=== PATIENT | female | born 1950 | race Caucasian/White ===

== ENCOUNTER → 2016-07-24 | Outpatient (CLI) | payer OTHER ==
--- NOTE | 2016-07-24 14:37 | XR ---
EXAMINATION TYPE: XR cervical spine limited DATE OF EXAM: 07/24/2016 12:58 PM COMPARISON: NONE HISTORY: 66-year-old female with neck pain TECHNIQUE: 3 views FINDINGS: No predental space widening or prevertebral soft tissue swelling. There is normal alignment of the ce rvical spine. Mild facet arthropathy mid to lower cervical spine. Odontoid view appears normal. Disc interspaces are relatively maintained. IMPRESSION: Mild facet arthropathy mid to lower cervical spine. Preserved alignment without acute osseous abnorma lity seen.
== END ==
LOC: RADXRMAIN 12:36
PROVIDERS: ATTEND Family Medicine
DX: M46.82 Other specified inflammatory spondylopathies, cervical region (principal)
CPT/HCPCS: 72040

== ENCOUNTER → 2016-09-10 | Outpatient (CLI) | payer OTHER ==
--- NOTE | 2016-09-10 15:31 | XR ---
EXAMINATION TYPE: XR thoracic spine 2V DATE OF EXAM: 09/10/2016 CLINICAL HISTORY: Thoracic spine pain per order. TECHNIQUE: Frontal, lateral, and swimmer's view of thoracic spine are obtained. COMPARISON: None. FINDINGS: Thoracic spine show slight scoliotic curvature without evidence of acute fracture or disloc ation. Vertebral body heights and disc space heights are preserved. Mild to moderate multilevel ante rior and lateral spurring is seen. Surgical clips epigastric region are noted. Additional cholecystec rossy clips are present. Visualized ribs are unremarkable. IMPRESSION: Mild to moderate multilevel spurring.
== END | disposition home or self-care (01) ==
LOC: RADXRMAIN 14:59
PROVIDERS: ATTEND Family Medicine
DX: M46.04 Spinal enthesopathy, thoracic region (principal); M54.6 Pain in thoracic spine
CPT/HCPCS: 72070

== ENCOUNTER → 2017-07-13 | Outpatient (CLI) | payer OTHER ==
--- NOTE | 2017-07-13 11:17 | MM ---
Reason for exam: additional evaluation requested from prior study. Last mammogram was performed 1 year and 5 months ago. History: Patient is postmenopausal, has history of breast cancer at age 56, and had previous chest radiation therapy at age 55. Family history of breast cancer in maternal grandmother and breast cancer in maternal aunt at age 60. Benign US left guided VAD of the left breast, July 04, 2010. Malignant excisional biopsy of the left breast, November 15, 2006. Excisional biopsy of the left breast, October 29, 2006. Malignant left mammotome panel of the left breast, October 18, 2006. Radiation therapy, 2006. Taking antineoplastic for 3 years beginning at age 56. Physical Findings: Nurse Summary: 1 x 1cm nodule in the left breast at scar/12 o'clock (nurse ts). MG 3D Diag Mammo W/Cad DG Bilateral CC and MLO view(s) were taken. XCCL view(s) were taken of the left breast. Prior study comparison: February 13, 2016, bilateral MG 3d diag mammo w/cad DG. February 11, 2015, bilateral MG 3d diag mammo w/cad DG. The breast tissue is heterogeneously dense. This may lower the sensitivity of mammography. There is a stable right upper outer quadrant posterior depth mass back to 2014. Left post therapy change. These results were verbally communicated with the patient and result sheet given to the patient on 07/13/17. ASSESSMENT: Benign, BI-RAD 2 RECOMMENDATION: Routine screening mammogram of both breasts in 1 year.
== END | disposition home or self-care (01) ==
LOC: RADMAMWWP 09:54
PROVIDERS: ATTEND Internal Medicine Hematology & Oncology
DX: Z08 Encounter for follow-up examination after completed treatment for malignant neoplasm (principal); Z85.3 Personal history of malignant neoplasm of breast
CPT/HCPCS: 77062; 77066

== ENCOUNTER → 2017-07-21 | Outpatient (CLI) | payer OTHER ==
--- NOTE | 2017-07-21 11:45 | CT ---
CT CHEST FOR PULMONARY EMBOLISM. EXAMINATION TYPE: CT angio chest DATE OF EXAM: 07/21/2017 INDICATION: Shortness of breath CT DLP: 598 mGycm, Automated exposure control for dose reduction was used. CONTRAST: Patient injected with 100 mL of Isovue 370. COMPARISON: 11/06/2010 TECHNIQUE: CT of the chest is performed on a spiral scan at 2 mm thick sections. Study is performed with intravenous contrast timed for evaluation for pulmonary embolism. This will limit additional po rtions of the evaluation. 3-D MIP images reconstructed by the technologist are reviewed on the compu ter in the coronal and sagittal planes. FINDINGS: No persistent filling defects are evident to suggest an acute pulmonary embolism. No mediastinal or hilar adenopathy enlarged by CT criteria is evident. No suspicious small lymph nod es are evident. The ascending aorta diameter at the level of the main pulmonary artery is 3.9 cm. Th e main pulmonary artery diameter at the bifurcation is 3.2 cm. Lung windows are clear. Limited CT section through the upper abdomen are unremarkable. Surgical clips left breast cancer. IMPRESSIONS: 1. No acute pulmonary embolism.
== END | disposition home or self-care (01) ==
LOC: RADCTMAIN 07-20 15:50
PROVIDERS: ATTEND Internal Medicine Hematology & Oncology
DX: C50.912 Malignant neoplasm of unspecified site of left female breast (principal); R06.02 Shortness of breath
CPT/HCPCS: 82565; 84520; 71275; 36415; Q9967

== ENCOUNTER → 2017-12-23 | Outpatient (CLI) | payer OTHER ==
--- NOTE | 2017-12-24 08:34 | USB ---
Reason for exam: clinical finding. History: Patient is postmenopausal, has history of breast cancer at age 56, and had previous chest radiation therapy at age 55. Family history of breast cancer in maternal grandmother and breast cancer in maternal aunt at age 60. Benign US left guided VAD of the left breast, July 04, 2010. Malignant excisional biopsy of the left breast, November 15, 2006. Excisional biopsy of the left breast, October 29, 2006. Malignant left mammotome panel of the left breast, October 18, 2006. Radiation therapy, 2006. Taking antineoplastic for 3 years beginning at age 56. Physical Findings: Nurse Summary: left breast hard, non-movable, 0.5 x 0.5cm palpable at lumpectomy site (nurse ts). US Breast LT Left complete breast ultrasound includes all four quadrants, the retroareolar region and axilla. Finding demonstrates a shadowing scar with lobular borders at 12 o'clock and a 0.9 x 1.2 x 0.3cm oval, elongated, hypoechoic lesion at the lateral chest. These results were verbally communicated with the patient and result sheet given to the patient on 12/23/17. ASSESSMENT: Probably benign, BI-RAD 3 RECOMMENDATION: Ultrasound of the left breast in 6 months. Manage patient on a clinical basis.
== END | disposition home or self-care (01) ==
LOC: RADUSWWP 15:26
PROVIDERS: ATTEND Internal Medicine Hematology & Oncology
DX: N63.20 Unspecified lump in the left breast, unspecified quadrant (principal); Z85.3 Personal history of malignant neoplasm of breast

== ENCOUNTER → 2018-08-29 | Outpatient (CLI) | payer OTHER ==
--- NOTE | 2018-08-29 14:59 | MM ---
Reason for exam: additional evaluation requested from prior study. Last mammogram was performed 1 year and 2 months ago. History: Patient is postmenopausal, has history of breast cancer at age 56, and had previous chest radiation therapy at age 55. Family history of breast cancer in maternal grandmother and breast cancer in maternal aunt at age 60. Benign US left guided VAD of the left breast, July 04, 2010. Malignant excisional biopsy of the left breast, November 15, 2006. Excisional biopsy of the left breast, October 29, 2006. Malignant left mammotome panel of the left breast, October 18, 2006. Radiation therapy, 2006. Taking antineoplastic for 3 years beginning at age 56. Physical Findings: Nurse did not find any significant physical abnormalities on exam. MG 3D Diag Mammo W/Cad DG Bilateral CC and MLO view(s) were taken. Prior study comparison: July 13, 2017, bilateral MG 3d diag mammo w/cad DG. February 13, 2016, bilateral MG 3d diag mammo w/cad DG. The breast tissue is heterogeneously dense. This may lower the sensitivity of mammography. There are benign appearing stable 3 masses. No suspicious abnormality. Post therapy change on the left. These results were verbally communicated with the patient and result sheet given to the patient on 08/29/18. ASSESSMENT: Benign, BI-RAD 2 RECOMMENDATION: Follow-up diagnostic mammogram of both breasts in 1 year.
== END | disposition home or self-care (01) ==
LOC: RADMAMWWP 13:31
PROVIDERS: ATTEND Internal Medicine Hematology & Oncology
DX: Z85.3 Personal history of malignant neoplasm of breast (principal)
CPT/HCPCS: 77062; 77066

== ENCOUNTER → 2018-12-26 | Outpatient (CLI) | payer OTHER ==
--- NOTE | 2018-12-26 10:24 | BD ---
EXAMINATION TYPE: Axial Bone Density DATE OF EXAM: 12/26/2018 COMPARISON: NONE CLINICAL HISTORY: Postmenopausal female Height: 5 FT 3 1/2 IN Weight: 252 FRAX RISK QUESTIONS: History of Fracture in Adulthood: YES RISK FACTORS HISTORY OF: Surgery to Spine/Hip(right/left)/Wrist (right/left): RT WRIST When: UNSURE Active: NO Postmenopausal woman: PART HYST AGE 32-31 Lost more than 2 inches in height since high school: YES MEDICATIONS: Additional Medications: ACID REFLUX MEDS, LOSARTIN , POTASSIUM, CELEBREX, ROSACIA MEDS, Additional History: EXAM MEASUREMENTS: Bone mineral densitometry was performed using the [employer] System. Bone mineral density as measured about the Lumbar spine is: ----- L1-L4(G/cm2): 1.113 T Score Values are as follows: ----- L2: -1.1 ----- L3: -0.6 ----- L4: 0.0 ----- L1-L4: -0.6 Bone mineral density has: INCREASED 13.6 % since study of: 2010 Bone mineral density about the R hip (g/cm2): 1.113 Bone mineral density about the L hip (g/cm2): 1.045 T Score values are as follows: -----R Neck: 0.5 -----L Neck: 0.1 -----R Total: 1.5 -----L Total: 1.3 Bone mineral density has: INCREASED 3.3 % since study of: 2010 IMPRESSION: Normal (Values between +1 and -1 indicate normal bone mass). Consider repeating this study in 5 year s or sooner if there is some new clinical indication. NOTE: T-SCORE=SD OF THE YOUNG ADULT MEAN.
== END ==
LOC: RADBDWWP 09:17
PROVIDERS: ATTEND Family Medicine
DX: Z13.820 Encounter for screening for osteoporosis (principal); Z78.0 Asymptomatic menopausal state
CPT/HCPCS: 77080

== ENCOUNTER → 2019-01-31 | Outpatient (CLI) | payer OTHER ==
--- NOTE | 2019-01-31 15:20 | XR ---
EXAMINATION TYPE: XR thoracic spine complete DATE OF EXAM: 01/31/2019 CLINICAL HISTORY: Chronic pain. TECHNIQUE: Frontal, lateral, and swimmer's view of thoracic spine are obtained. COMPARISON: CTA chest July 21, 2017. FINDINGS: Thoracic spine show exaggerated thoracic kyphosis without evidence of acute fracture or dis location. Vertebral body heights remain preserved. [id number] multilevel disc space narrowing and moderate multilevel anterior and lateral spurring is redemonstrated. Visualized ribs are unremark able. Cholecystectomy clips are again seen. IMPRESSION: As above.
--- NOTE | 2019-01-31 15:21 | XR ---
EXAMINATION TYPE: XR scapula bilateral DATE OF EXAM: 01/31/2019 COMPARISON: CTA chest July 21, 2017 HISTORY: Chronic bilateral scapula pain. TECHNIQUE: 2 views bilateral scapula. FINDINGS: No acute displaced scapular fracture identified bilaterally. No suspicious lytic or destruc tive bony lesion seen. Fairly moderate to severe bilateral glenohumeral joint narrowing with right gr eater than left humeral head spurring is incidentally noted. IMPRESSION: As above.
== END | disposition home or self-care (01) ==
LOC: RADXRMAIN 14:47
PROVIDERS: ATTEND Family Medicine
DX: M89.8X1 Other specified disorders of bone, shoulder (principal); M99.72 Connective tissue and disc stenosis of intervertebral foramina of thoracic region; M54.6 Pain in thoracic spine
CPT/HCPCS: 72072

== ENCOUNTER → 2019-12-26 | Outpatient (CLI) | payer OTHER ==
[2019-12-26 22:58] LABS: Thyroid Peroxidase Antibodies 54.3 U/mL (0.0-60.0)
== END | disposition home or self-care (01) ==
LOC: LABWHC1 13:23
PROVIDERS: ATTEND Family Medicine
DX: E01.0 Iodine-deficiency related diffuse (endemic) goiter (principal)
CPT/HCPCS: 36415; 86376; 86800

== ENCOUNTER → 2020-01-01 | Outpatient (CLI) | payer OTHER ==
--- NOTE | 2020-01-01 15:29 | US ---
EXAMINATION TYPE: US thyroid st tissue head/neck DATE OF EXAM: 01/01/2020 COMPARISON: NONE CLINICAL HISTORY: E01.0 thyromegaly. thyromegaly GLAND SIZE: Right Lobe: 4.2 x 1.5 x 1.8 cm Overall Parenchyma: homogenous Left Lobe: 3.9 x 1.2 x 1.5 cm Overall Parenchyma: homogeneous Isthmus Thickness: 0.3 cm NODULES RIGHT: # of nodules measured on right: 0 LEFT: # of nodules measured on left: 1 1. 0.8 X 0.4 x 0.6 cm cystic nodule at the upper pole with well-defined margins; . This nodule is wider than tall and shows no intranodular vascularity. Prior size: no prior ISTHMUS: # of nodules measured in the isthmus: 0 Bilateral neck scanned, no evidence of lymphadenopathy. Slightly heterogeneous normal-sized thyroid without worrisome greater than 1 cm nodules. Technologist alvarez 8 mm cystic nodule left thyroid lobe. Smaller nodules measuring under 5 mm are scattered bilat erally on images saved. IMPRESSION: As above. No concerning greater than 1 cm nodules.
== END | disposition home or self-care (01) ==
LOC: RADUSWWP 14:47
PROVIDERS: ATTEND Family Medicine
DX: E04.2 Nontoxic multinodular goiter (principal)
CPT/HCPCS: 76536

== ENCOUNTER → 2020-02-01 | Outpatient (CLI) | payer OTHER ==
--- NOTE | 2020-02-01 14:05 | MM ---
Reason for exam: follow-up at short interval from prior study. Last mammogram was performed 4 months ago. History: Patient is postmenopausal, has history of breast cancer at age 56, had previous chest radiation therapy at age 55, and has history of other cancer at age 30. Family history of breast cancer in maternal grandmother and breast cancer in maternal aunt at age 60. Benign US left guided VAD of the left breast, July 04, 2010. Malignant excisional biopsy of the left breast, November 15, 2006. Excisional biopsy of the left breast, October 29, 2006. Malignant left mammotome panel of the left breast, October 18, 2006. Radiation therapy, 2006. Took antineoplastic for 5 years beginning at age 56. Physical Findings: Nurse did not find any significant physical abnormalities on exam. MG 3D Diag Mammo W/Cad RT CC and MLO view(s) were taken of the right breast. Prior study comparison: September 22, 2019, bilateral MG 3d diag mammo w/cad DG. August 29, 2018, bilateral MG 3d diag mammo w/cad DG. The breast tissue is heterogeneously dense. This may lower the sensitivity of mammography. There is chronic nodularity in the left breast. 1cm circumscribed mass 12 o'clock right breast middle depth versus 9mm 4 months ago. This can be reassessed by ultrasound. These results were verbally communicated with the patient and result sheet given to the patient on 02/01/20. ASSESSMENT: Incomplete: need additional imaging evaluation, BI-RAD 0 RECOMMENDATION: Ultrasound of the right breast. (12 o'clock)
--- NOTE | 2020-02-01 14:07 | USB ---
Reason for exam: additional evaluation requested from abnormal screening. History: Patient is postmenopausal, has history of breast cancer at age 56, had previous chest radiation therapy at age 55, and has history of other cancer at age 30. Family history of breast cancer in maternal grandmother and breast cancer in maternal aunt at age 60. Benign US left guided VAD of the left breast, July 04, 2010. Malignant excisional biopsy of the left breast, November 15, 2006. Excisional biopsy of the left breast, October 29, 2006. Malignant left mammotome panel of the left breast, October 18, 2006. Radiation therapy, 2006. Took antineoplastic for 5 years beginning at age 56. US Breast Limited RT Technologist: Viki Cramer Right limited breast ultrasound including focal area of concern, retroareolar and axilla demonstrates a 0.8 x 0.9 x 0.5cm cystic lesion at 12 o'clock versus 9 x 9 x 6mm previously, two thin septations. Unchanged from priors. The nodularity on mammogram can be reassessed at the patient's annual exam. Scanned 12-3 o'clock. These results were verbally communicated with the patient and result sheet given to the patient on 02/01/20. ASSESSMENT: Probably benign, BI-RAD 3 RECOMMENDATION: Follow-up diagnostic mammogram of both breasts in 8 months. Back on schedule for August 2020.
== END | disposition home or self-care (01) ==
LOC: RADMAMWWP 10:58
PROVIDERS: ATTEND Internal Medicine Hematology & Oncology
DX: R92.8 Other abnormal and inconclusive findings on diagnostic imaging of breast (principal); Z85.3 Personal history of malignant neoplasm of breast
CPT/HCPCS: 77061; 77065

== ENCOUNTER → 2020-10-03 | Outpatient (CLI) | payer MEDICARE ==
--- NOTE | 2020-10-08 13:29 | MM ---
Reason for exam: additional evaluation requested from prior study. Last mammogram was performed 8 months ago. History: Patient is postmenopausal, has history of breast cancer at age 56, had previous chest radiation therapy at age 55, and has history of other cancer at age 30. Family history of breast cancer in maternal grandmother and breast cancer in maternal aunt at age 60. Benign US left guided VAD of the left breast, July 04, 2010. Malignant excisional biopsy of the left breast, November 15, 2006. Excisional biopsy of the left breast, October 29, 2006. Malignant left mammotome panel of the left breast, October 18, 2006. Radiation therapy, 2006. Took antineoplastic for 5 years beginning at age 56. Physical Findings: Nurse did not find any significant physical abnormalities on exam. MG 3D Diag Mammo W/Cad DG Bilateral CC and MLO view(s) were taken. Prior study comparison: February 01, 2020, right breast MG 3d diag mammo w/cad RT. September 22, 2019, bilateral MG 3d diag mammo w/cad DG. August 29, 2018, bilateral MG 3d diag mammo w/cad DG. July 13, 2017, bilateral MG 3d diag mammo w/cad DG. The breast tissue is heterogeneously dense. This may lower the sensitivity of mammography. Finding #1: There is stable and decreased in size architectural distortion in the left breast consistent with known post tram changes. Finding #2: There are typically benign round, regional calcifications in both breasts. There is a chronic nodularity in the right breast. There is no new discrete abnormality. These results were verbally communicated with the patient and result sheet given to the patient on 10/03/20. ASSESSMENT: Benign, BI-RAD 2 RECOMMENDATION: Follow-up diagnostic mammogram of both breasts in 1 year.
== END | disposition home or self-care (01) ==
LOC: RADMAMWWP 13:38
PROVIDERS: ATTEND Internal Medicine Hematology & Oncology
DX: R92.2 Inconclusive mammogram (principal); Z78.0 Asymptomatic menopausal state; Z85.3 Personal history of malignant neoplasm of breast; Z80.3 Family history of malignant neoplasm of breast
CPT/HCPCS: 77066; G0279; 77062

== ENCOUNTER → 2021-10-06 | Outpatient (CLI) | payer MEDICARE ==
--- NOTE | 2021-10-06 11:28 | MM ---
Reason for Exam: Follow-up at short interval from prior study. Last screening mammogram was performed 12 month(s) ago. Patient History: Menarche at age 13. First Full-Term at age 18. Hysterectomy at age 40. Postmenopausal. Breast cancer, left, age 56. Other cancer, age 30. Previous chest radiation therapy at age 55. 11/15/2006, Malignant Excisional Biopsy on the left side. 10/29/2006, Excisional Biopsy on the Left side. 07/04/2010, Benign Core Biopsy on the left side. 10/18/2006, Malignant Core Biopsy on the left side. 2006, Radiation Therapy. Maternal grandmother had breast cancer, age 80. Maternal aunt had breast cancer, age 60. Tissue Density: The breast tissue is heterogeneously dense. This may lower the sensitivity of mammography. Findings: Analyzed By CAD. Postsurgical changes are within the left breast. Multiple surgical clips are present. There is deformity of the left breast. Left breast is smaller than the right. Chronic nodularity is within the right breast. No significant interval changes are evident. Nipple shadow is evident on the craniocaudal view with stable interval appearance of the mediolateral oblique view. Overall Assessment: Benign, BI-RAD 2 Management: Screening Mammogram of both breasts in 1 year. A clinical breast exam by your physician is recommended on an annual basis and results should be correlated with mammographic findings. This exam should not preclude additional follow-up of suspicious palpable abnormalities. Results were given to the patient verbally at the time of exam. Electronically signed and approved by: Janes Reddy D.O. Radiologis
== END | disposition home or self-care (01) ==
LOC: RADMAMWWP 10:54
PROVIDERS: ATTEND Internal Medicine Hematology & Oncology
DX: R92.8 Other abnormal and inconclusive findings on diagnostic imaging of breast (principal); Z80.3 Family history of malignant neoplasm of breast
CPT/HCPCS: 77066; G0279; 77062

== ENCOUNTER → 2021-11-25 | Outpatient (CLI) | payer MEDICARE ==
--- NOTE | 2021-11-26 15:36 | MR ---
EXAMINATION TYPE: MR chest wo/w con DATE OF EXAM: 11/25/2021 COMPARISON: None. HISTORY: BREAST CANCER, patient complains of pain to right of spine mid back CONTRAST: Standard multiplanar, multisequence MRI departmental protocol images were obtained without contrast a nd with 12 mL intravenous Gadavist gadolinium contrast. FINDINGS: Vitamin E marker placed at level of palpable abnormality over the mid thoracic spine securities sales associate iorly axial image 15 series 701. There is normal subcutaneous fat identified at this level. There is no concerning solid or cystic mass seen. No suspicious focal fluid collection is seen. Deeper muscles are symmetric and within normal limits. No abnormal enhancement is seen. No large disc herniation no raghav on sagittal images. Bone marrow signal intensity in the thoracic spine is preserved. IMPRESSION: Unremarkable study.
== END | disposition home or self-care (01) ==
LOC: RADMRIMAIN 12:50
PROVIDERS: ATTEND Internal Medicine Hematology & Oncology
DX: C50.212 Malignant neoplasm of upper-inner quadrant of left female breast (principal)
CPT/HCPCS: 71552; A9585

== ENCOUNTER → 2022-10-28 | Outpatient (CLI) | payer MEDICARE ==
--- NOTE | 2022-10-29 08:47 | MM ---
Reason for Exam: Screening (asymptomatic). Last screening mammogram was performed 12 month(s) ago. Patient History: Menarche at age 13. First Full-Term at age 18. Hysterectomy at age 40. Postmenopausal. Breast cancer, left, age 56. Other cancer, age 30. Previous chest radiation therapy at age 56. 11/15/2006, Malignant Excisional Biopsy on the left side. 10/29/2006, Excisional Biopsy on the Left side. 07/04/2010, Benign Core Biopsy on the left side. 10/18/2006, Malignant Core Biopsy on the left side. 2006, Radiation Therapy. Maternal grandmother had breast cancer, age 80. Maternal aunt had breast cancer, age 60. Prior Study Comparison: 02/01/2020 Right Diagnostic Mammogram, [facility]. 10/03/2020 Bilateral Diagnostic Mammogram, [facility]. 10/06/2021 Bilateral MG 3D diag mammo w/cad DG, [facility]. Tissue Density: The breast tissue is heterogeneously dense. This may lower the sensitivity of mammography. Findings: Analyzed By CAD. Posttreatment changes left breast. There is no suspicious group of microcalcifications or new suspicious mass in either breast. Overall Assessment: Benign, BI-RAD 2 Management: Screening Mammogram of both breasts in [address] [facility] will attempt to contact patient to return for supplemental views and ultrasound if indicated. Patient should continue monthly self-breast exams. A clinical breast exam by your physician is recommended on an annual basis. This exam should not preclude additional follow-up of suspicious palpable abnormalities. Note on Deisi scores and lifetime risk: 1. A Deisi score greater than 3% is considered moderate risk. If this is the case, consider specialist referral to assess eligibility for a risk reducing agent. 2. If overall lifetime risk for the development of breast cancer is 20% or higher, the patient may qualify for future screening with alternating mammogram and breast MRI. Electronically signed and approved by: Dayron Pritchett DO
== END | disposition home or self-care (01) ==
LOC: RADMAMWWP 14:15
PROVIDERS: ATTEND Internal Medicine Hematology & Oncology
DX: Z12.31 Encounter for screening mammogram for malignant neoplasm of breast (principal); Z78.0 Asymptomatic menopausal state; Z85.3 Personal history of malignant neoplasm of breast; Z80.3 Family history of malignant neoplasm of breast; Z92.3 Personal history of irradiation
CPT/HCPCS: 77063; 77067

== ENCOUNTER → 2023-02-03 | Outpatient (CLI) | payer MEDICARE ==
--- NOTE | 2023-02-03 15:59 | MR ---
EXAMINATION TYPE: MR thoracic spine wo con DATE OF EXAM: 02/03/2023 COMPARISON: NONE HISTORY: Mid back pain. TECHNIQUE: Multiplanar, multisequence imaging of thoracic spine is performed without contrast FINDINGS: Spinal cord shows normal course, caliber, and signal as it courses the thoracic spine. Lori tebral body heights are satisfactory. Exaggerated thoracic kyphosis is seen. Mild multilevel anterio r spurring and disc space narrowing in the mid to lower thoracic spine. Bone marrow signal intensity is preserved. No large disc herniations are present on sagittal images. Review of the axial images shows no significant spinal canal stenosis or neural foraminal narrowing a t any thoracic level. Visualized thorax and upper abdomen show no suspicious abnormality. IMPRESSION: Exaggerated thoracic kyphosis. Mild multilevel degenerative change in the mid to lower t horacic spine. No large disc herniation is present.
== END | disposition home or self-care (01) ==
LOC: RADMRIMAIN 13:32
PROVIDERS: ATTEND Anesthesiology
DX: M51.34 Other intervertebral disc degeneration, thoracic region (principal); M47.814 Spondylosis without myelopathy or radiculopathy, thoracic region; M54.04 Panniculitis affecting regions of neck and back, thoracic region
CPT/HCPCS: 72146

== ENCOUNTER → 2023-02-08 | Outpatient (CLI) | payer MEDICARE ==
--- NOTE | 2023-02-09 13:03 | XR ---
EXAMINATION TYPE: XR cervical spine comp DATE OF EXAM: 02/08/2023 COMPARISON: None HISTORY: 07/24/2016 TECHNIQUE: 5 view cervical spine FINDINGS: Prevertebral space is normal. Posterior spinal lamellar line is intact. Disc heights are pr eserved. Vertebral body heights are preserved. Foramen are patent. Odontoid is nondiagnostic with ove rlying occiput and maxilla. IMPRESSION: 1. Cervical spine is visualized appears unremarkable.
== END | disposition home or self-care (01) ==
LOC: RADXRMAIN 16:27
PROVIDERS: ATTEND Physician Assistant
DX: M50.322 Other cervical disc degeneration at C5-C6 level (principal)
CPT/HCPCS: 72050

== ENCOUNTER → 2023-11-02 | Outpatient (CLI) | payer MEDICARE ==
--- NOTE | 2023-11-07 11:34 | MM ---
Reason for Exam: Screening (asymptomatic). Last mammogram was performed 1 year(s) and 1 month(s) ago. Patient History: Menarche at age 13. First Full-Term at age 18. Hysterectomy at age 40. Postmenopausal. Breast cancer, left, age 56. Other cancer, age 30. Previous chest radiation therapy at age 56. 11/15/2006, Malignant Excisional Biopsy on the left side. 10/29/2006, Excisional Biopsy on the Left side. 07/04/2010, Benign Core Biopsy on the left side. 10/18/2006, Malignant Core Biopsy on the left side. 2006, Radiation Therapy. Maternal grandmother had breast cancer, age 80. Maternal aunt had breast cancer, age 60. Prior Study Comparison: 10/03/2020 Bilateral Diagnostic Mammogram, [facility]. 10/06/2021 Bilateral MG 3D diag mammo w/cad DG, [facility]. 10/28/2022 Bilateral MG 3D screening mammo w/cad, [facility]. Tissue Density: The breasts are heterogeneously dense, which may obscure small masses. Findings: Analyzed By CAD. Left breast surgical clips. Right breast: There is no suspicious group of microcalcifications or new suspicious mass. Left breast: There is no suspicious group of microcalcifications or new suspicious mass. Benign-appearing calcifications left breast. Overall Assessment: Benign, BI-RAD 2 Management: Screening Mammogram of both breasts in [address] [facility] will attempt to contact patient to return for supplemental views and ultrasound if indicated. Patient should continue monthly self-breast exams. A clinical breast exam by your physician is recommended on an annual basis. This exam should not preclude additional follow-up of suspicious palpable abnormalities. Note on Deisi scores and lifetime risk: 1. A Deisi score greater than 3% is considered moderate risk. If this is the case, consider specialist referral to assess eligibility for a risk reducing agent. 2. If overall lifetime risk for the development of breast cancer is 20% or higher, the patient may qualify for future screening with alternating mammogram and breast MRI. Electronically signed and approved by: Dayron Pritchett DO
== END | disposition home or self-care (01) ==
LOC: RADMAMWWP 11:15
PROVIDERS: ATTEND Internal Medicine Hematology & Oncology
DX: Z12.31 Encounter for screening mammogram for malignant neoplasm of breast
CPT/HCPCS: 77063; 77067